=== PATIENT | male | born 1965 | race Caucasian/White ===

== ENCOUNTER → 2016-08-04 | Outpatient (REF) | payer BC ==
[2016-08-04 18:25] LABS: BASO % 0.5 % (0.0-1.0); EOS # 0.3 K/mm3 (0.0-0.50); EOS % 4.8 % (0.0-3.0); LARGE UNSTAINED CELL # 0.2 K/mm3 (0.0-0.4); LARGE UNSTAINED CELL % 3.4 % (0.0-4.0); LYMPH # 1.7 K/mm3 (1.5-4.5); LYMPH % 27.7 % (24.0-44.0); MEAN CORPUSCULAR HEMOGLOBIN 30.7 pg (27.0-33.0); MEAN CORPUSCULAR HGB CONC 34.6 g/dl (32.0-36.5); MEAN CORPUSCULAR VOLUME 88.8 fl (80.0-96.0); MONO # 0.3 K/mm3 (0.0-0.8); MONO % 5.5 % (0.0-5.0); NEUTROPHILS # 3.5 K/mm3 (1.8-7.7); PLATELET COUNT, AUTOMATED 271 k/mm3 (150-450); RED CELL DISTRIBUTION WIDTH 12.7 % (11.5-14.5); WHITE BLOOD COUNT 6.1 K/mm3 (4.0-10.0)
[2016-08-04 18:37] LABS: ALBUMIN 4.4 GM/DL (3.2-5.2); ALBUMIN/GLOBULIN RATIO 1.38 (1.00-1.93); ALKALINE PHOSPHATASE 96 U/L (45-117); ALT/SGPT 36 U/L (12-78); ANION GAP 11 MEQ/L (8-16); AST/SGOT 12 U/L (15-37); BILIRUBIN,TOTAL 0.5 MG/DL (0.2-1.0); BLOOD UREA NITROGEN 19 MG/DL (7-18); CARBON DIOXIDE LEVEL 24 MEQ/L (21-32); CHLORIDE LEVEL 102 MEQ/L (98-107); CHOLESTEROL LEVEL 189 MG/DL (<200); CREATININE FOR GFR 0.62 MG/DL (0.70-1.30); GLOMERULAR FILTRATION RATE > 60.0 (>56); GLUCOSE, FASTING 259 MG/DL (70-105); POTASSIUM SERUM 4.1 MEQ/L (3.5-5.1); SODIUM LEVEL 137 MEQ/L (136-145); TOTAL PROTEIN 7.6 GM/DL (6.4-8.2); TRIGLYCERIDES LEVEL 282 MG/DL (<150)
== END ==
LOC: M SFHCCAPE 07:04
PROVIDERS: ATTEND Physician Assistant
DX: E78.2 Mixed hyperlipidemia (principal); E11.9 Type 2 diabetes mellitus without complications; I10 Essential (primary) hypertension; Z12.5 Encounter for screening for malignant neoplasm of prostate
CPT/HCPCS: 80053; 80061; 82043; 83036; 84443; 85025; G0103

== ENCOUNTER → 2017-06-24 | Outpatient (REF) | payer BC ==
[2017-06-24 17:58] LABS: ALBUMIN 4.4 GM/DL (3.2-5.2); ALBUMIN/GLOBULIN RATIO 1.29 (1.00-1.93); ALKALINE PHOSPHATASE 95 U/L (45-117); ALT/SGPT 46 U/L (12-78); ANION GAP 10 MEQ/L (8-16); AST/SGOT 19 U/L (7-37); BILIRUBIN,TOTAL 0.4 MG/DL (0.2-1.0); BLOOD UREA NITROGEN 18 MG/DL (7-18); CALCIUM LEVEL 9.4 MG/DL (8.5-10.1); CARBON DIOXIDE LEVEL 28 MEQ/L (21-32); CHLORIDE LEVEL 101 MEQ/L (98-107); CHOLESTEROL LEVEL 168 MG/DL (<200); CREATININE FOR GFR 0.66 MG/DL (0.70-1.30); GLOMERULAR FILTRATION RATE > 60.0 (>56); GLUCOSE, FASTING 134 MG/DL (70-105); POTASSIUM SERUM 4.1 MEQ/L (3.5-5.1); SODIUM LEVEL 139 MEQ/L (136-145); TOTAL PROTEIN 7.8 GM/DL (6.4-8.2); TRIGLYCERIDES LEVEL 365 MG/DL (<150)
== END ==
LOC: M SFHCCAPE 10:22
PROVIDERS: ATTEND Physician Assistant
DX: E78.2 Mixed hyperlipidemia (principal); E11.9 Type 2 diabetes mellitus without complications

== ENCOUNTER → 2018-03-01 | Outpatient (REF) | payer BC ==
[2018-03-01 17:46] LABS: ALBUMIN 3.7 GM/DL (3.2-5.2); ALBUMIN/GLOBULIN RATIO 1.09 (1.00-1.93); ALKALINE PHOSPHATASE 86 U/L (45-117); ALT/SGPT 37 U/L (12-78); ANION GAP 10 MEQ/L (8-16); AST/SGOT 19 U/L (7-37); BILIRUBIN,TOTAL 0.3 MG/DL (0.2-1.0); BLOOD UREA NITROGEN 19 MG/DL (7-18); CALCIUM LEVEL 8.8 MG/DL (8.5-10.1); CARBON DIOXIDE LEVEL 26 MEQ/L (21-32); CHLORIDE LEVEL 107 MEQ/L (98-107); CHOLESTEROL LEVEL 172 MG/DL (<200); CHOLESTEROL RISK RATIO 6.142 (<5); CREATININE FOR GFR 0.78 MG/DL (0.70-1.30); GLOMERULAR FILTRATION RATE > 60.0 (>56); GLUCOSE, FASTING 165 MG/DL (70-100); HDL CHOLESTEROL 28 MG/DL (>40); NON-HDL-C 144 MG/DL; POTASSIUM SERUM 4.2 MEQ/L (3.5-5.1); PSA SCREENING 0.56 NG/ML (< 4.0); SODIUM LEVEL 143 MEQ/L (136-145); TOTAL PROTEIN 7.1 GM/DL (6.4-8.2); TRIGLYCERIDES LEVEL 567 MG/DL (<150)
[2018-03-01 17:52] LABS: ESTIMATED AVERAGE GLUCOSE 200 MG/DL (60-110); HEMOGLOBIN A1c 8.6 %
[2018-03-01 18:02] LABS: CREATININE, URINE 66.3 MG/DL; MALB URINE SIEMENS 28.5 MG/L; MAU/CREAT RATIO 42.9 MCG/MG (0.0-30.0)
== END ==
LOC: M SFHCCAPE 06:58
DX: Z12.5 Encounter for screening for malignant neoplasm of prostate (principal); E11.69 Type 2 diabetes mellitus with other specified complication; E78.2 Mixed hyperlipidemia
CPT/HCPCS: 84443

== ENCOUNTER → 2018-11-22 | Outpatient (REF) | payer BC ==
[2018-11-22 17:21] LABS: ALBUMIN 4.3 GM/DL (3.2-5.2); ALT/SGPT 42 U/L (12-78); BILIRUBIN,TOTAL 0.4 MG/DL (0.2-1.0); BLOOD UREA NITROGEN 21 MG/DL (7-18); CALCIUM LEVEL 9.1 MG/DL (8.5-10.1); CARBON DIOXIDE LEVEL 23 MEQ/L (21-32); CHLORIDE LEVEL 100 MEQ/L (98-107); CHOLESTEROL LEVEL 199 MG/DL (<200); CHOLESTEROL RISK RATIO 7.653 (<5); CREATININE FOR GFR 0.75 MG/DL (0.70-1.30); GLOMERULAR FILTRATION RATE > 60.0 (>56); GLUCOSE, FASTING 241 MG/DL (70-100); HDL CHOLESTEROL 26 MG/DL (>40); NON-HDL-C 173 MG/DL; POTASSIUM SERUM 4.1 MEQ/L (3.5-5.1); SODIUM LEVEL 132 MEQ/L (136-145); TOTAL PROTEIN 7.5 GM/DL (6.4-8.2); TRIGLYCERIDES LEVEL 800 MG/DL (<150)
[2018-11-22 19:03] LABS: HEMOGLOBIN A1c 8.9 %
== END ==
LOC: M SFHCCAPE 07:01
PROVIDERS: ATTEND Physician Assistant
DX: E11.69 Type 2 diabetes mellitus with other specified complication (principal); E78.2 Mixed hyperlipidemia

== ENCOUNTER → 2019-05-31 | Outpatient (REF) | payer BC ==
[2019-05-31 17:12] LABS: ALBUMIN 4.1 GM/DL (3.2-5.2); ALT/SGPT 43 U/L (12-78); BILIRUBIN,TOTAL 0.5 MG/DL (0.2-1.0); BLOOD UREA NITROGEN 17 MG/DL (7-18); CALCIUM LEVEL 9.1 MG/DL (8.5-10.1); CARBON DIOXIDE LEVEL 28 MEQ/L (21-32); CHLORIDE LEVEL 100 MEQ/L (98-107); CHOLESTEROL LEVEL 149 MG/DL (<200); CHOLESTEROL RISK RATIO 3.921 (<5); CREATININE FOR GFR 0.74 MG/DL (0.70-1.30); GLOMERULAR FILTRATION RATE > 60.0 (>56); GLUCOSE, FASTING 167 MG/DL (70-100); HDL CHOLESTEROL 38 MG/DL (>40); LDL CHOLESTEROL 74 MG/DL (<100); NON-HDL-C 111 MG/DL; POTASSIUM SERUM 4.8 MEQ/L (3.5-5.1); SODIUM LEVEL 137 MEQ/L (136-145); TOTAL PROTEIN 7.5 GM/DL (6.4-8.2); TRIGLYCERIDES LEVEL 187 MG/DL (<150)
[2019-05-31 17:14] LABS: CREATININE, URINE 33.4 MG/DL; MALB URINE SIEMENS 13.5 MG/L; MAU/CREAT RATIO 40.4 MCG/MG (0.0-30.0)
[2019-05-31 17:26] LABS: HEMOGLOBIN A1c 8.3 %
== END ==
LOC: M SFHCCAPE 07:06
PROVIDERS: ATTEND Physician Assistant
DX: Z12.5 Encounter for screening for malignant neoplasm of prostate (principal); I10 Essential (primary) hypertension; E11.9 Type 2 diabetes mellitus without complications; E78.2 Mixed hyperlipidemia

== ENCOUNTER → 2020-05-10 | Outpatient (REF) | payer BC ==
[2020-05-10 12:35] LABS: BASO # 0.1 10^3/uL (0.0-0.2); BASO % 0.7 % (0.0-1.0); EOS # 0.4 10^3/uL (0.0-0.5); EOS % 6.2 % (0.0-3.0); HEMOGLOBIN 15.5 g/dl (13.5-17.5); LYMPH # 1.9 10^3/uL (1.5-5.0); LYMPH % 28.7 % (24.0-44.0); MEAN CORPUSCULAR HEMOGLOBIN 29.4 pg (27.0-33.0); MEAN CORPUSCULAR HGB CONC 32.3 g/dl (32.0-36.5); MEAN CORPUSCULAR VOLUME 91.1 fl (80.0-96.0); MONO # 0.6 10^3/uL (0.0-0.8); MONO % 9.3 % (0.0-5.0); NEUTROPHILS # 3.7 10^3/uL (1.5-8.5); NEUTROPHILS % 54.4 % (36.0-66.0); PLATELET COUNT, AUTOMATED 249 10^3/uL (150-450); RED BLOOD COUNT 5.27 10^6/uL (4.30-6.10); WHITE BLOOD COUNT 6.8 10^3/uL (4.0-10.0)
[2020-05-10 13:27] LABS: ALT/SGPT 33 U/L (12-78); BILIRUBIN,TOTAL 0.6 MG/DL (0.2-1.0); BLOOD UREA NITROGEN 19 MG/DL (7-18); CALCIUM LEVEL 9.2 MG/DL (8.5-10.1); CARBON DIOXIDE LEVEL 27 MEQ/L (21-32); CHLORIDE LEVEL 101 MEQ/L (98-107); CHOLESTEROL LEVEL 187 MG/DL (<200); CHOLESTEROL RISK RATIO 5.843 (<5); GLOMERULAR FILTRATION RATE > 60.0 (>56); GLUCOSE, FASTING 226 MG/DL (70-100); HDL CHOLESTEROL 32 MG/DL (>40); NON-HDL-C 155 MG/DL; POTASSIUM SERUM 5.1 MEQ/L (3.5-5.1); SODIUM LEVEL 133 MEQ/L (136-145); TOTAL PROTEIN 7.4 GM/DL (6.4-8.2); TRIGLYCERIDES LEVEL 632 MG/DL (<150)
[2020-05-10 13:56] LABS: HEMOGLOBIN A1c 10.2 %
== END ==
LOC: M SFHCCLAY 07:17
PROVIDERS: ATTEND Physician Assistant
DX: E11.9 Type 2 diabetes mellitus without complications (principal); Z12.5 Encounter for screening for malignant neoplasm of prostate

== ENCOUNTER → 2020-10-22 | Outpatient (REF) | payer BC ==
[2020-10-22 17:33] LABS: ALBUMIN 4.2 GM/DL (3.2-5.2); ALT/SGPT 53 U/L (12-78); BILIRUBIN,TOTAL 0.3 MG/DL (0.2-1.0); BLOOD UREA NITROGEN 22 MG/DL (7-18); CALCIUM LEVEL 8.8 MG/DL (8.5-10.1); CARBON DIOXIDE LEVEL 26 MEQ/L (21-32); CHLORIDE LEVEL 103 MEQ/L (98-107); CHOLESTEROL LEVEL 147 MG/DL (<200); GLOMERULAR FILTRATION RATE > 60.0 (>56); GLUCOSE, FASTING 172 MG/DL (70-100); HDL CHOLESTEROL 30 MG/DL (>40); LDL CHOLESTEROL 46 MG/DL (<100); NON-HDL-C 117 MG/DL; POTASSIUM SERUM 4.5 MEQ/L (3.5-5.1); SODIUM LEVEL 134 MEQ/L (136-145); TOTAL PROTEIN 7.3 GM/DL (6.4-8.2); TRIGLYCERIDES LEVEL 354 MG/DL (<150)
[2020-10-22 18:01] LABS: HEMOGLOBIN A1c 9.1 %
== END ==
LOC: M SFHCCAPE 07:57
PROVIDERS: ATTEND Physician Assistant
DX: I10 Essential (primary) hypertension (principal); E11.9 Type 2 diabetes mellitus without complications; E78.2 Mixed hyperlipidemia

== ENCOUNTER → 2021-05-22 | Outpatient (REF) | payer BC ==
[2021-05-22 16:03] LABS: BASO # 0.1 10^3/uL (0.0-0.2); BASO % 0.7 % (0.0-1.0); EOS # 0.4 10^3/uL (0.0-0.5); EOS % 4.8 % (0.0-3.0); HEMATOCRIT 44.9 % (42.0-52.0); HEMOGLOBIN 14.6 g/dl (13.5-17.5); LYMPH # 1.9 10^3/uL (1.5-5.0); LYMPH % 26.8 % (24.0-44.0); MEAN CORPUSCULAR HGB CONC 32.5 g/dl (32.0-36.5); MEAN CORPUSCULAR VOLUME 89.3 fl (80.0-96.0); MONO # 0.6 10^3/uL (0.0-0.8); MONO % 8.7 % (2.0-8.0); NEUTROPHILS # 4.2 10^3/uL (1.5-8.5); PLATELET COUNT, AUTOMATED 264 10^3/uL (150-450); RED BLOOD COUNT 5.03 10^6/uL (4.30-6.10); WHITE BLOOD COUNT 7.2 10^3/uL (4.0-10.0)
[2021-05-22 16:39] LABS: ALBUMIN 3.9 GM/DL (3.2-5.2); ALT/SGPT 42 U/L (12-78); BILIRUBIN,TOTAL 0.5 MG/DL (0.2-1.0); BLOOD UREA NITROGEN 21 MG/DL (7-18); CALCIUM LEVEL 9.4 MG/DL (8.5-10.1); CARBON DIOXIDE LEVEL 24 MEQ/L (21-32); CHLORIDE LEVEL 99 MEQ/L (98-107); CHOLESTEROL LEVEL 157 MG/DL (<200); CHOLESTEROL RISK RATIO 4.617 (<5); CREATININE FOR GFR 0.79 MG/DL (0.70-1.30); GLOMERULAR FILTRATION RATE > 60.0 (>56); GLUCOSE, FASTING 279 MG/DL (70-100); HDL CHOLESTEROL 34 MG/DL (>40); NON-HDL-C 123 MG/DL; POTASSIUM SERUM 4.7 MEQ/L (3.5-5.1); SODIUM LEVEL 134 MEQ/L (136-145); TOTAL PROTEIN 7.3 GM/DL (6.4-8.2); TRIGLYCERIDES LEVEL 403 MG/DL (<150)
[2021-05-22 16:48] LABS: HEMOGLOBIN A1c 11.3 %
== END ==
LOC: M SFHCCAPE 07:38
PROVIDERS: ATTEND Physician Assistant
DX: E78.2 Mixed hyperlipidemia (principal); E11.9 Type 2 diabetes mellitus without complications

== ENCOUNTER → 2021-06-04 | Outpatient (CLI) | payer BC | LOC: M LABSMTC 10:17 | PROVIDERS: ATTEND Pediatrics | DX: Z11.52 Encounter for screening for COVID-19 (principal); Z20.822 Contact with and (suspected) exposure to COVID-19 | CPT/HCPCS: C9803; U0003 ==

== ENCOUNTER → 2022-01-05 | Outpatient (REF) | payer BC ==
[2022-01-05 15:48] LABS: BASO # 0.1 10^3/uL (0.0-0.2); BASO % 0.7 % (0.0-1.0); EOS # 0.5 10^3/uL (0.0-0.5); EOS % 6.5 % (0.0-3.0); HEMATOCRIT 49.7 % (42.0-52.0); HEMOGLOBIN 16.2 g/dl (13.5-17.5); LYMPH # 2.1 10^3/uL (1.5-5.0); LYMPH % 27.5 % (24.0-44.0); MEAN CORPUSCULAR HGB CONC 32.6 g/dl (32.0-36.5); MEAN CORPUSCULAR VOLUME 88.9 fl (80.0-96.0); MONO # 0.6 10^3/uL (0.0-0.8); MONO % 8.1 % (2.0-8.0); NEUTROPHILS # 4.3 10^3/uL (1.5-8.5); NEUTROPHILS % 56.5 % (36.0-66.0); PLATELET COUNT, AUTOMATED 261 10^3/uL (150-450); RED BLOOD COUNT 5.59 10^6/uL (4.30-6.10); WHITE BLOOD COUNT 7.7 10^3/uL (4.0-10.0)
[2022-01-05 16:12] LABS: HEMOGLOBIN A1c 10.9 %
[2022-01-05 16:19] LABS: ALT/SGPT 39 U/L (12-78); BILIRUBIN,TOTAL 0.5 MG/DL (0.2-1.0); BLOOD UREA NITROGEN 17 MG/DL (7-18); CALCIUM LEVEL 9.3 MG/DL (8.5-10.1); CARBON DIOXIDE LEVEL 24 MEQ/L (21-32); CHLORIDE LEVEL 103 MEQ/L (98-107); CHOLESTEROL LEVEL 150 MG/DL (<200); CREATININE FOR GFR 0.73 MG/DL (0.70-1.30); GLOMERULAR FILTRATION RATE > 60.0 (>56); GLUCOSE, FASTING 215 MG/DL (70-100); HDL CHOLESTEROL 26 MG/DL (>40); POTASSIUM SERUM 4.6 MEQ/L (3.5-5.1); SODIUM LEVEL 137 MEQ/L (136-145); TRIGLYCERIDES LEVEL 693 MG/DL (<150)
[2022-01-05 16:20] LABS: ALBUMIN 4.2 GM/DL (3.2-5.2); CHOLESTEROL RISK RATIO 5.769 (<5); NON-HDL-C 124 MG/DL; TOTAL 25(OH) VITAMIN D 21.5 NG/ML (30.0-100.0); TOTAL PROTEIN 7.5 GM/DL (6.4-8.2)
[2022-01-05 16:21] LABS: MALB URINE SIEMENS 9.9 MG/L; MAU/CREAT RATIO 31.9 MCG/MG (0.0-30.0)
== END ==
LOC: M SFHCCAPE 07:14
PROVIDERS: ATTEND Physician Assistant
DX: Z00.00 Encounter for general adult medical examination without abnormal findings (principal)
CPT/HCPCS: 80053; 80061; 82043; 82306; 83036; 84443; 85025; G0103

== ENCOUNTER → 2022-04-05 | Outpatient (CLI) | payer BC ==
[~2022-04-05] MED LIST: ALBU8.5H INH; AMLO1TAB24 PO; ATOR1TAB21 PO; EZET10TA21 PO; INVO100T PO; LEVE1INJ5 SC; LISI20TA35 PO; METF750T36 PO; TRUL0.5I PO
== END ==
LOC: M LABSMTC 11:33
PROVIDERS: ATTEND Anesthesiology
DX: Z01.812 Encounter for preprocedural laboratory examination (principal); Z11.52 Encounter for screening for COVID-19

== ENCOUNTER 2022-04-09 06:32 | Day surgery (SDC) | payer BC ==
[~2022-04-09] VITALS: Ht 182.9 cm; Wt 131.5 kg
[~2022-04-09 06:32] MED LIST changes: +NS 1,000 ML IV ONE
[2022-04-09] MEDS ORDERED: LIDOCAINE 2% 100MG/5ML SDV (FOR ANES.) As Ordered ONE (07:03)
[2022-04-09] MEDS ORDERED: propofoL 200 MG/20 ML VIAL As Ordered ONE ×2 (07:03→07:41)
[2022-04-09 08:20] VITALS: BP 119/78
== END 2022-04-09 08:27 | disposition home or self-care (01) ==
LOC: M OPP 06:32
PROVIDERS: ATTEND Surgery
DX: Z12.11 Encounter for screening for malignant neoplasm of colon (principal); Z80.0 Family history of malignant neoplasm of digestive organs; D12.2 Benign neoplasm of ascending colon; D12.4 Benign neoplasm of descending colon; D12.7 Benign neoplasm of rectosigmoid junction; D12.8 Benign neoplasm of rectum; K57.30 Diverticulosis of large intestine without perforation or abscess without bleeding; Z79.02 Long term (current) use of antithrombotics/antiplatelets; Z79.4 Long term (current) use of insulin; Z79.52 Long term (current) use of systemic steroids; Z79.899 Other long term (current) drug therapy; I10 Essential (primary) hypertension; E11.9 Type 2 diabetes mellitus without complications; E78.00 Pure hypercholesterolemia, unspecified; R06.9 Unspecified abnormalities of breathing; Z87.891 Personal history of nicotine dependence

== ENCOUNTER → 2022-04-17 | Outpatient (CLI) | payer BC ==
[~2022-04-17] MED LIST changes: -NS 1,000 ML IV ONE
== END ==
LOC: M RAD 07:59
PROVIDERS: ATTEND Physician Assistant
DX: Z12.2 Encounter for screening for malignant neoplasm of respiratory organs (principal)

== ENCOUNTER → 2022-06-04 | Outpatient (CLI) | payer BC | LOC: M CARPUL 14:11 | PROVIDERS: ATTEND Internal Medicine Pulmonary Disease | DX: R06.02 Shortness of breath (principal) ==

== ENCOUNTER → 2022-06-15 | Outpatient (REF) | payer BC ==
[2022-06-15 19:23] LABS: HEMOGLOBIN A1c 8.5 % (4.0-6.0)
== END ==
LOC: M SFHCCAPE 11:20
PROVIDERS: ATTEND Physician Assistant
DX: Z01.818 Encounter for other preprocedural examination (principal); H26.9 Unspecified cataract; E11.9 Type 2 diabetes mellitus without complications

== ENCOUNTER → 2022-06-18 | Outpatient (CLI) | payer BC ==
[~2022-06-18] MED LIST changes: +BREO1INH3 INH
== END ==
LOC: M LABSMTC 10:15
PROVIDERS: ATTEND Anesthesiology
DX: Z01.812 Encounter for preprocedural laboratory examination (principal); Z11.52 Encounter for screening for COVID-19

== ENCOUNTER 2022-06-23 09:07 | Day surgery (SDC) | payer BC ==
[~2022-06-23] VITALS: Ht 182.9 cm; Wt 131.5 kg
[~2022-06-23 09:07] MED LIST changes: +CEFUROXIME 1MG/0.1ML INTRACAMERAL INJ As Ordered ONE; +LIDOCAINE 1% 1ML PF SYRINGE (OR EYE CASES) As Ordered ONE; +PROPARACAINE 0.5% OPHTH SOL 15ML OD ONE
[2022-06-23] MEDS: CYCLOPENTOLATE 1% OPHTH SOLN 2 ML BTL OD SCH ×2 (09:58→10:01)
[2022-06-23] MEDS: TROPICAMIDE 1% OPHTH SOLN 15ML OD SCH ×2 (09:58→10:01)
[2022-06-23] MEDS: PHENYLEPHRINE 2.5% OPHTH SOL 2ML OD SCH ×2 (09:58→10:01)
[2022-06-23] MEDS: OFLOXACIN 0.3 % (OCUFLOX) OPTH SOL 5ML OD SCH ×2 (09:58→10:01)
[2022-06-23] MEDS ORDERED: fentaNYL 100 MCG/2 ML INJECTION As Ordered ONE (10:37)
[2022-06-23] MEDS ORDERED: MIDAZOLAM INJ 2MG/2ML VIAL (J2250 PER 1MG) As Ordered ONE (10:37)
[2022-06-23] MEDS ORDERED: TOBRADEX OPHTH OINT 3.5 GM As Ordered ONE (10:55)
[2022-06-23 11:25] VITALS: BP 144/86
== END 2022-06-23 11:20 | disposition home or self-care (01) ==
LOC: M SDC 09:07
PROVIDERS: ATTEND Ophthalmology
DX: H25.11 Age-related nuclear cataract, right eye (principal); E11.9 Type 2 diabetes mellitus without complications; I10 Essential (primary) hypertension; E78.5 Hyperlipidemia, unspecified; J45.909 Unspecified asthma, uncomplicated; Z87.891 Personal history of nicotine dependence; Z79.51 Long term (current) use of inhaled steroids; Z79.899 Other long term (current) drug therapy; Z79.4 Long term (current) use of insulin
CPT/HCPCS: 66984; J0697; J2250; J3010

== ENCOUNTER → 2023-08-23 | Outpatient (REF) | payer BC ==
[~2023-08-23] MED LIST changes: -CEFUROXIME 1MG/0.1ML INTRACAMERAL INJ As Ordered ONE; +INSU100I6 SC; -LEVE1INJ5 SC; -LIDOCAINE 1% 1ML PF SYRINGE (OR EYE CASES) As Ordered ONE; -PROPARACAINE 0.5% OPHTH SOL 15ML OD ONE
[2023-08-23 18:53] LABS: ALBUMIN 3.9 G/DL (3.2-5.2); ALKALINE PHOSPHATASE 91 U/L (46-116); ALT/SGPT 26 U/L (7.0-40); AST/SGOT 10 U/L (<34); BILIRUBIN,TOTAL 0.6 MG/DL (0.3-1.2); BLOOD UREA NITROGEN 17 MG/DL (9-23); CARBON DIOXIDE LEVEL 23 MMOL/L (20-31); CHLORIDE LEVEL 101 MMOL/L (98-107); CHOLESTEROL LEVEL 101 MG/DL (<200); CHOLESTEROL RISK RATIO 3.21 (<5); CREATININE FOR GFR 0.53 MG/DL (0.70-1.30); GLOMERULAR FILTRATION RATE > 60.0 (>49); GLUCOSE, FASTING 191 MG/DL (74-106); HDL CHOLESTEROL 31.4 MG/DL (>40); LDL CHOLESTEROL 18.6 MG/DL (<100); NON-HDL-C 69.6 MG/DL; POTASSIUM SERUM 4.5 MMOL/L (3.5-5.1); SODIUM LEVEL 134 MMOL/L (136-145); TOTAL PROTEIN 7.4 G/DL (5.7-8.2); TRIGLYCERIDES LEVEL 255 MG/DL (<150)
[2023-08-23 19:18] LABS: HEMOGLOBIN A1c 9.8 % (4.0-6.0)
== END ==
LOC: M SFHCCAPE 07:22
PROVIDERS: ATTEND Physician Assistant Medical
DX: E78.2 Mixed hyperlipidemia (principal); E11.69 Type 2 diabetes mellitus with other specified complication

== ENCOUNTER → 2024-05-16 | Outpatient (REF) | payer BC ==
[2024-05-16 17:22] LABS: ALKALINE PHOSPHATASE 101 U/L (40-129); ALT/SGPT 31 U/L (7.0-40); AST/SGOT 13 U/L (<34); BILIRUBIN,TOTAL 0.6 MG/DL (0.3-1.2); BLOOD UREA NITROGEN 23 MG/DL (9-23); CALCIUM LEVEL 9.4 MG/DL (8.3-10.6); CARBON DIOXIDE LEVEL 26 MMOL/L (20-31); CHLORIDE LEVEL 102 MMOL/L (98-107); CREATININE FOR GFR 0.51 MG/DL (0.70-1.30); GLOMERULAR FILTRATION RATE > 60.0 (>49); GLUCOSE, FASTING 322 MG/DL (74-106); POTASSIUM SERUM 4.4 MMOL/L (3.5-5.1); SODIUM LEVEL 135 MMOL/L (136-145); TOTAL PROTEIN 7.7 G/DL (5.7-8.2)
[2024-05-16 17:51] LABS: CREATININE, URINE 41.9 MG/DL; MAU/CREAT RATIO 57.2 MCG/MG (0.0-30.0)
[2024-05-16 18:02] LABS: HEMOGLOBIN A1c 11.8 % (4.0-6.0)
== END ==
LOC: M SFHCCAPE 07:16
PROVIDERS: ATTEND Physician Assistant Medical
DX: E11.65 Type 2 diabetes mellitus with hyperglycemia (principal)

== ENCOUNTER 2024-08-12 08:06 | Inpatient (IN) | payer BC ==
[~2024-08-12] VITALS: Ht 182.9 cm; Wt 133.0 kg
[2024-08-12] VITALS (20 sets, daily range): BP systolic 102–134; BP diastolic 56–76; TEMP 97.2–97.8; O2SAT 92–99
[2024-08-12 08:47] LABS: VENOUS BASE EXCESS -3.5 (-2.0-2.0); VENOUS HCO3 20.8 MMOL/L (23.0-27.0); VENOUS PARTIAL PRESSURE CO2 35.4 mmHg (38.0-50.0); VENOUS PH 7.387 UNITS (7.330-7.430); VENOUS TOTAL CO2 21.9 MMOL/L (24.0-28.0)
[2024-08-12] MEDS ORDERED: ISOVUE-370 76% 100ML VIAL As Ordered ONE (08:58)
[2024-08-12 09:04] LABS: HEMATOCRIT 44.2 % (42.0-52.0); HEMOGLOBIN 14.6 g/dl (13.5-17.5); MEAN CORPUSCULAR HEMOGLOBIN 28.8 pg (27.0-33.0); MEAN CORPUSCULAR VOLUME 87.2 fl (80.0-96.0); PLATELET COUNT, AUTOMATED 234 10^3/uL (150-450); RED BLOOD COUNT 5.07 10^6/uL (4.30-6.10); WHITE BLOOD COUNT 22.4 10^3/uL (4.0-10.0)
[2024-08-12 09:09] LABS: INR 1.06; PARTIAL THROMBOPLASTIN TIME 28.6 SECONDS (24.8-34.2); PROTHROMBIN TIME 14.1 SECONDS (12.5-14.5)
[2024-08-12 09:24] LABS: AMYLASE 40 U/L (30-118)
[2024-08-12 09:25] LABS: ALBUMIN 3.8 G/DL (3.2-5.2); ALKALINE PHOSPHATASE 71 U/L (40-129); ALT/SGPT 24 U/L (7.0-40); AST/SGOT < 8 U/L (<34); BILIRUBIN,DIRECT 0.4 MG/DL (<0.4); BLOOD UREA NITROGEN 18 MG/DL (9-23); C REACTIVE PROTEIN QUANTITATIV 16.02 MG/DL (<1.0); CALCIUM LEVEL 9.1 MG/DL (8.3-10.6); CARBON DIOXIDE LEVEL 23 MMOL/L (20-31); CHLORIDE LEVEL 105 MMOL/L (98-107); CREATININE FOR GFR 0.66 MG/DL (0.70-1.30); GLOMERULAR FILTRATION RATE > 60.0 (>49); GLUCOSE, FASTING 302 MG/DL (74-106); POTASSIUM SERUM 4.3 MMOL/L (3.5-5.1); SODIUM LEVEL 138 MMOL/L (136-145); TOTAL PROTEIN 7.3 G/DL (5.7-8.2)
[2024-08-12] MEDS: PIPERACILLIN/TAZOBACTAM SOD 4.5 GM in DEXTROSE 5% (D5W) ADV/MINI-BAG 50 ML IV ONE (09:30)
[2024-08-12] MEDS: [UNRECOGNIZED DRUG - OTHER] IV STA (09:30)
[2024-08-12] MEDS: NS 0.9% IV STA (09:30)
[2024-08-12 09:32] LABS: PROCALCITONIN 0.57 ng/ml
[2024-08-12 09:42] LABS: ATYPICAL LYMPH 1 % (0-5); LYMPHOCYTES 4 % (16-44); MONOCYTES 6 % (0-5); NEUTROPHILS 87 % (28-66)
[2024-08-12 09:43] LABS: PLATELET ESTIMATE NORMAL (NORMAL)
[2024-08-12] MEDS: dexAMETHasone 20MG/5ML VIAL IV ONE (09:48)
[2024-08-12] MEDS ORDERED: oxyCODONE 5MG TAB PO PRN (10:05)
[2024-08-12] MEDS ORDERED: fentaNYL 100 MCG/2 ML INJECTION IV PRN (10:05)
[2024-08-12] MEDS ORDERED: MEPERIDINE 25 MG/ML 1ML VIAL IV PRN (10:05)
[2024-08-12] MEDS ORDERED: ONDANSETRON 4MG 2ML VIAL IV PRN (10:05)
[2024-08-12] MEDS: ACETAMINOPHEN *IV* 1,000 MG in IV 1 EA IV ONE (10:07)
[2024-08-12] MEDS ORDERED: BASA100I SC (10:19)
[2024-08-12] MEDS ORDERED: TIRZ5PEN SQ (10:19)
[2024-08-12] MEDS ORDERED: ATOR40TA75 PO (10:19)
[2024-08-12] MEDS ORDERED: HOME MED LIST COMPLETE! XX SCH (10:20)
[2024-08-12] MEDS ORDERED: ROCURONIUM BROMIDE 50MG/5ML VIAL As Ordered ONE (10:33)
[2024-08-12] MEDS ORDERED: MIDAZOLAM INJ 2MG/2ML VIAL As Ordered ONE (10:33)
[2024-08-12] MEDS ORDERED: propofoL 200 MG/20 ML VIAL As Ordered ONE (10:33)
[2024-08-12] MEDS ORDERED: ONDANSETRON 4MG 2ML VIAL As Ordered ONE (10:33)
[2024-08-12] MEDS ORDERED: LIDOCAINE 2% 100MG/5ML SDV (FOR ANES.) As Ordered ONE (10:33)
[2024-08-12] MEDS ORDERED: fentaNYL 100 MCG/2 ML INJECTION As Ordered ONE (10:34)
[2024-08-12] MEDS ORDERED: SUCCINYLCHOLINE 100MG/5ML SYRINGE As Ordered ONE (10:37)
[2024-08-12] MEDS ORDERED: GLYCOPYRROLATE INJ 0.2 MG/ML 2 ML VIAL As Ordered ONE (10:42)
[2024-08-12] MEDS ORDERED: SUGAMMADEX SODIUM 500 MG/5 ML VIAL (BRIDION) As Ordered ONE (12:08)
[2024-08-12] MEDS: LIDOCAINE W/EPINEPHRINE 1% 20ML VIAL As Ordered ONE (12:25)
[2024-08-12] MEDS ORDERED: FENTANYL DRIP LOCK BOX KEY 1 EACH XX PRN (12:55)
[2024-08-12] MEDS: LR 1,000 ML IV SCH (13:00)
[2024-08-12] MEDS: propofoL 1,000 MG in IV 1 EA IV SCH (13:06)
[2024-08-12] MEDS: fentaNYL CITRATE/NaCl 1,000 MCG in IV 1 EA IV SCH (13:35)
[2024-08-12] MEDS: MIDAZOLAM INJ 2MG/2ML VIAL IV PRN (13:49)
[2024-08-12 15:08] LABS: ABG BASE EXCESS -3.7 (-2.0-2.0); ABG HCO3 21.2 MMOL/L (22.0-26.0); ABG O2 SATURATION 96.8 % (95.0-99.0); ABG PARTIAL PRESSURE CO2 37.7 mmHg (35.0-45.0); ABG PARTIAL PRESSURE O2 103.6 mmHg (75.0-100.0); ABG STANDARD HCO3 21.4 MMOL/L. (22.0-26.0); ABG TOTAL CO2 22.3 MMOL/L (23.0-31.0); ABG pH (ARTERIAL) 7.367 UNITS (7.350-7.450)
[2024-08-12] MEDS: PIPERACILLIN/TAZOBACTAM SOD 4.5 GM in DEXTROSE 5% (D5W) ADV/MINI-BAG 50 ML IV SCH (15:58)
[2024-08-12] MEDS: ENOXAPARIN 40MG/0.4ML SYRINGE (J1650 PER 10MG) SC SCH (21:37)
[2024-08-12] MEDS: PANTOPRAZOLE 40MG VIAL IV SCH (21:37)
[2024-08-13] VITALS (31 sets, daily range): BP systolic 108–160; BP diastolic 60–97; TEMP 97.4–98.2; O2SAT 91–99
[2024-08-13 04:35] LABS: BASO % 0.1 % (0.0-1.0); EOS % 0.1 % (0.0-3.0); HEMATOCRIT 40.4 % (42.0-52.0); HEMOGLOBIN 12.7 g/dl (13.5-17.5); LYMPH # 0.6 10^3/uL (1.5-5.0); LYMPH % 4.1 % (24.0-44.0); MEAN CORPUSCULAR HEMOGLOBIN 29.1 pg (27.0-33.0); MEAN CORPUSCULAR HGB CONC 31.4 g/dl (32.0-36.5); MEAN CORPUSCULAR VOLUME 92.4 fl (80.0-96.0); MONO # 0.9 10^3/uL (0.0-0.8); MONO % 6.5 % (2.0-8.0); NEUTROPHILS # 12.1 10^3/uL (1.5-8.5); NEUTROPHILS % 88.7 % (36.0-66.0); PLATELET COUNT, AUTOMATED 195 10^3/uL (150-450); RED BLOOD COUNT 4.37 10^6/uL (4.30-6.10); WHITE BLOOD COUNT 13.6 10^3/uL (4.0-10.0)
[2024-08-13 05:09] LABS: ALBUMIN 2.8 G/DL (3.2-5.2); ALKALINE PHOSPHATASE 55 U/L (40-129); ALT/SGPT 16 U/L (7.0-40); AST/SGOT < 8 U/L (<34); BILIRUBIN,TOTAL 0.4 MG/DL (0.3-1.2); BLOOD UREA NITROGEN 30 MG/DL (9-23); CARBON DIOXIDE LEVEL 23 MMOL/L (20-31); CHLORIDE LEVEL 104 MMOL/L (98-107); CREATININE FOR GFR 0.77 MG/DL (0.70-1.30); GLOMERULAR FILTRATION RATE > 60.0 (>49); GLUCOSE, FASTING 372 MG/DL (74-106); MAGNESIUM LEVEL 2.2 MG/DL (1.8-2.4); PHOSPHORUS LEVEL 3.4 MG/DL (2.4-5.1); POTASSIUM SERUM 4.7 MMOL/L (3.5-5.1); SODIUM LEVEL 139 MMOL/L (136-145); TOTAL PROTEIN 6.3 G/DL (5.7-8.2)
[2024-08-13 05:42] LABS: ABG HCO3 23.4 MMOL/L (22.0-26.0); ABG O2 SATURATION 98.2 % (95.0-99.0); ABG PARTIAL PRESSURE CO2 37.8 mmHg (35.0-45.0); ABG PARTIAL PRESSURE O2 200.2 mmHg (75.0-100.0); ABG STANDARD HCO3 23.7 MMOL/L. (22.0-26.0); ABG TOTAL CO2 24.5 MMOL/L (23.0-31.0); ABG pH (ARTERIAL) 7.409 UNITS (7.350-7.450)
[2024-08-13] MEDS ORDERED: INSULIN IV RATE CHANGE DOCUMENTATION ML/HR XX SCH (05:50)
[2024-08-13] MEDS ORDERED: INSULIN REGULAR IN 0.9 % NACL 100 UNIT in IV 1 EA IV SCH (05:50)
[2024-08-13] MEDS ORDERED: GLUCOSE 4 GM CHEW PO PRN (05:55)
[2024-08-13] MEDS ORDERED: GLUCAGON INJ 1MG VIAL SC PRN (05:55)
[2024-08-13] MEDS: INSULIN LISPRO (NovoLOG) PER UNIT SC SCH (06:13)
[2024-08-14] VITALS (23 sets, daily range): BP systolic 127–178; BP diastolic 70–92; TEMP 97–100; O2SAT 94–99
[2024-08-14 05:21] LABS: HEMATOCRIT 37.7 % (42.0-52.0); HEMOGLOBIN 11.9 g/dl (13.5-17.5); MEAN CORPUSCULAR HEMOGLOBIN 29.7 pg (27.0-33.0); MEAN CORPUSCULAR HGB CONC 31.6 g/dl (32.0-36.5); PLATELET COUNT, AUTOMATED 224 10^3/uL (150-450); RED BLOOD COUNT 4.01 10^6/uL (4.30-6.10); WHITE BLOOD COUNT 9.6 10^3/uL (4.0-10.0)
[2024-08-14 05:21] LABS: ABG BASE EXCESS -1.8 (-2.0-2.0); ABG HCO3 23.6 MMOL/L (22.0-26.0); ABG O2 SATURATION 97.8 % (95.0-99.0); ABG PARTIAL PRESSURE CO2 42.3 mmHg (35.0-45.0); ABG PARTIAL PRESSURE O2 173.4 mmHg (75.0-100.0); ABG TOTAL CO2 24.9 MMOL/L (23.0-31.0); ABG pH (ARTERIAL) 7.364 UNITS (7.350-7.450)
[2024-08-14 05:54] LABS: BLOOD UREA NITROGEN 29 MG/DL (9-23); CALCIUM LEVEL 8.2 MG/DL (8.3-10.6); CARBON DIOXIDE LEVEL 27 MMOL/L (20-31); CHLORIDE LEVEL 111 MMOL/L (98-107); CREATININE FOR GFR 0.53 MG/DL (0.70-1.30); GLOMERULAR FILTRATION RATE > 60.0 (>49); GLUCOSE, FASTING 297 MG/DL (74-106); MAGNESIUM LEVEL 2.7 MG/DL (1.8-2.4); POTASSIUM SERUM 4.9 MMOL/L (3.5-5.1); SODIUM LEVEL 144 MMOL/L (136-145)
[2024-08-14] MEDS: OXYMETAZOLINE 0.05% NASAL SPRAY ONE (09:00)
[2024-08-14] MEDS: ACETAMINOPHEN *IV* 1,000 MG in IV 1 EA IV ONE (13:37)
[2024-08-15 04:00] VITALS: BP 165/85; TEMP 98; O2SAT 96
[2024-08-15 05:56] LABS: HEMATOCRIT 38.7 % (42.0-52.0); HEMOGLOBIN 12.6 g/dl (13.5-17.5); MEAN CORPUSCULAR HEMOGLOBIN 29.2 pg (27.0-33.0); MEAN CORPUSCULAR HGB CONC 32.6 g/dl (32.0-36.5); MEAN CORPUSCULAR VOLUME 89.8 fl (80.0-96.0); PLATELET COUNT, AUTOMATED 253 10^3/uL (150-450); RED BLOOD COUNT 4.31 10^6/uL (4.30-6.10); WHITE BLOOD COUNT 9.6 10^3/uL (4.0-10.0)
[2024-08-15 08:00] VITALS: BP 176/80; TEMP 98.7; O2SAT 94
[2024-08-15] MEDS ORDERED: KETOROLAC 30 MG/ML 1ML VIAL IV PRN (09:30)
[2024-08-15] MEDS: INSULIN LISPRO (NovoLOG) PER UNIT SC SCH ×2 (11:57→21:33)
[2024-08-15 12:00] VITALS: BP 187/84; TEMP 98; O2SAT 87
[2024-08-15 16:00] VITALS: BP 175/101; TEMP 97.9; O2SAT 93
[2024-08-15] MEDS: AMPICILLIN SOD/SULBACTAM SOD 3 GM in SODIUM CHLORIDE 0.9% 100ML ADD 100 ML IV SCH (17:10)
[2024-08-15] MEDS ORDERED: ALBUTEROL 90 MCG/ACT 8GM HFA INHALER INH PRN (17:35)
[2024-08-15] MEDS: amLODIPine 5 MG TAB PO SCH (18:28)
[2024-08-15] MEDS: INSULIN LISPRO (NovoLOG) PER UNIT SC STA (18:30)
[2024-08-15 19:48] VITALS: BP 165/76; TEMP 98; O2SAT 93
[2024-08-15] MEDS: LEVEMIR (INSULIN DETEMIR) 1 UNITS/0.01ML SC SCH (21:33)
[2024-08-16 00:06] VITALS: BP 171/81; TEMP 97.3; O2SAT 94
[2024-08-16 04:42] VITALS: BP 174/83; TEMP 97.8; O2SAT 94
[2024-08-16 08:00] VITALS: BP 168/89; TEMP 98.6; O2SAT 93
[2024-08-16] MEDS: ATORVASTATIN 20 MG TAB PO SCH (08:03)
[2024-08-16] MEDS: predniSONE 20 MG TAB PO SCH (08:03)
[2024-08-16 08:04] VITALS: BP 168/89
[2024-08-16] MEDS: hydroCHLOROthiazide 12.5 MG CAPSULE PO SCH (08:25)
[2024-08-16] MEDS ORDERED: predniSONE 10MG TAB PO SCH (09:00)
[2024-08-16 09:31] LABS: BLOOD UREA NITROGEN 25 MG/DL (9-23); CALCIUM LEVEL 8.5 MG/DL (8.3-10.6); CARBON DIOXIDE LEVEL 31 MMOL/L (20-31); CHLORIDE LEVEL 107 MMOL/L (98-107); CREATININE FOR GFR 0.54 MG/DL (0.70-1.30); GLOMERULAR FILTRATION RATE > 60.0 (>49); GLUCOSE, FASTING 194 MG/DL (74-106); POTASSIUM SERUM 4.2 MMOL/L (3.5-5.1); SODIUM LEVEL 146 MMOL/L (136-145)
[2024-08-16 11:42] VITALS: BP 151/83; TEMP 98.1; O2SAT 92
[2024-08-16] MEDS ORDERED: PRED20TA PO (14:33)
[2024-08-16] MEDS ORDERED: AMOXTAB PO (14:35)
[2024-08-16] MEDS ORDERED: PROBCAP14 PO (14:35)
[2024-08-16] MEDS ORDERED: DOXY-440 PO (14:40)
== END 2024-08-16 15:32 | disposition home or self-care (01) | DRG 710 ==
LOC: M ED 08:06 → M SDC 10:04 → M ICU 12:47 → M SDC 13:32 → M ICU 13:33 → M MSPAV 08-16 11:27
PROVIDERS: ADMIT Internal Medicine Pulmonary Disease; ATTEND Student in an Organized Health Care Education/Training Program
PROC: 0KD20ZZ Extraction of Right Neck Muscle, Open Approach (ICD-10-PCS; 2024-08-12)
PROC: 0C9P0ZZ Drainage of Tonsils, Open Approach (ICD-10-PCS; 2024-08-12)
PROC: 0K9200Z Drainage of Right Neck Muscle with Drainage Device, Open Approach (ICD-10-PCS; 2024-08-12)
PROC: 5A1945Z Respiratory Ventilation, 24-96 Consecutive Hours (ICD-10-PCS; 2024-08-12)
PROC: 0KD Muscles, Extraction (ICD-10-PCS; principal; 2024-08-12 09:47)
DX: A41.9 Sepsis, unspecified organism (principal); J36 Peritonsillar abscess; L02.11 Cutaneous abscess of neck; E78.5 Hyperlipidemia, unspecified; E11.9 Type 2 diabetes mellitus without complications

== ENCOUNTER → 2024-10-23 | Outpatient (REF) | payer BC ==
[~2024-10-23] MED LIST changes: +AMOXTAB PO; +ATOR40TA75 PO; +BASA100I SC; +DOXY-440 PO; +PRED20TA PO; +PROBCAP14 PO; +TIRZ5PEN SQ
[2024-10-23 18:07] LABS: ALKALINE PHOSPHATASE 106 U/L (40-129); ALT/SGPT 24 U/L (7.0-40); AST/SGOT 12 U/L (<34); BASO # 0.1 10^3/uL (0.0-0.2); BASO % 0.8 % (0.0-1.0); BILIRUBIN,TOTAL 0.6 MG/DL (0.3-1.2); BLOOD UREA NITROGEN 21 MG/DL (9-23); CALCIUM LEVEL 9.3 MG/DL (8.3-10.6); CARBON DIOXIDE LEVEL 22 MMOL/L (20-31); CHLORIDE LEVEL 102 MMOL/L (98-107); CHOLESTEROL LEVEL 106 MG/DL (<200); CHOLESTEROL RISK RATIO 3.33 (<5); CREATININE FOR GFR 0.57 MG/DL (0.70-1.30); EOS # 0.5 10^3/uL (0.0-0.5); GLOMERULAR FILTRATION RATE > 60.0 (>49); GLUCOSE, FASTING 333 MG/DL (74-106); HDL CHOLESTEROL 31.8 MG/DL (>40); HEMATOCRIT 46.5 % (42.0-52.0); HEMOGLOBIN 15.4 g/dl (13.5-17.5); LDL CHOLESTEROL 31.4 MG/DL (<100); LYMPH % 24.8 % (24.0-44.0); MEAN CORPUSCULAR HEMOGLOBIN 28.7 pg (27.0-33.0); MEAN CORPUSCULAR HGB CONC 33.1 g/dl (32.0-36.5); MEAN CORPUSCULAR VOLUME 86.8 fl (80.0-96.0); MONO # 0.7 10^3/uL (0.0-0.8); MONO % 8.8 % (2.0-8.0); NEUTROPHILS # 4.6 10^3/uL (1.5-8.5); NEUTROPHILS % 59.1 % (36.0-66.0); NON-HDL-C 74.2 MG/DL; PLATELET COUNT, AUTOMATED 294 10^3/uL (150-450); POTASSIUM SERUM 4.5 MMOL/L (3.5-5.1); PSA SCREENING 0.49 NG/ML (< 4.00); RED BLOOD COUNT 5.36 10^6/uL (4.30-6.10); SODIUM LEVEL 134 MMOL/L (136-145); TOTAL PROTEIN 7.3 G/DL (5.7-8.2); TRIGLYCERIDES LEVEL 214 MG/DL (<150); WHITE BLOOD COUNT 7.9 10^3/uL (4.0-10.0)
[2024-10-23 18:58] LABS: HEMOGLOBIN A1c 11.3 % (4.0-6.0)
== END ==
LOC: M SFHCCAPE 07:10
PROVIDERS: ATTEND Physician Assistant Medical
DX: J45.909 Unspecified asthma, uncomplicated (principal); E11.65 Type 2 diabetes mellitus with hyperglycemia; E78.2 Mixed hyperlipidemia; Z12.5 Encounter for screening for malignant neoplasm of prostate
CPT/HCPCS: 80053; 80061; 83036; 85025; G0103

== ENCOUNTER → 2025-01-18 | Outpatient (REF) | payer BC ==
[~2025-01-18] MED LIST changes: +AMOX875T2 PO; +METF-838 PO; +TIRZ7.5P INJ
[2025-01-18 17:59] LABS: CALCIUM LEVEL 9.0 MG/DL (8.3-10.6); CARBON DIOXIDE LEVEL 24 MMOL/L (20-31); CHLORIDE LEVEL 100 MMOL/L (98-107); CREATININE FOR GFR 0.62 MG/DL (0.70-1.30); GLOMERULAR FILTRATION RATE > 90.0 (>49); POTASSIUM SERUM 4.8 MMOL/L (3.5-5.1); SODIUM LEVEL 135 MMOL/L (136-145)
[2025-01-18 18:19] LABS: ESTIMATED AVERAGE GLUCOSE 283.0 MG/DL (60-110)
== END ==
LOC: M SFHCCAPE 07:24
PROVIDERS: ATTEND Physician Assistant Medical
DX: E11.65 Type 2 diabetes mellitus with hyperglycemia (principal)

== ENCOUNTER → 2025-04-23 | Outpatient (REF) | payer BC ==
[~2025-04-23] MED LIST changes: -EZET10TA21 PO; +EZET10TA57 PO
[2025-04-23 18:40] LABS: BASO # 0.1 10^3/uL (0.0-0.2); BASO % 0.6 % (0.0-1.0); EOS # 0.7 10^3/uL (0.0-0.5); EOS % 8.3 % (0.0-3.0); LYMPH # 2.0 10^3/uL (1.5-5.0); LYMPH % 23.6 % (24.0-44.0); MONO # 0.6 10^3/uL (0.0-0.8); MONO % 7.5 % (2.0-8.0); NEUTROPHILS # 5.0 10^3/uL (1.5-8.5); NEUTROPHILS % 59.5 % (36.0-66.0); PLATELET COUNT, AUTOMATED 292 10^3/uL (150-450)
[2025-04-23 18:43] LABS: ALT/SGPT 30 U/L (7.0-40); AST/SGOT 22 U/L (<34); CALCIUM LEVEL 9.6 MG/DL (8.3-10.6); CARBON DIOXIDE LEVEL 24 MMOL/L (20-31); CHLORIDE LEVEL 103 MMOL/L (98-107); CREATININE FOR GFR 0.60 MG/DL (0.70-1.30); GLOMERULAR FILTRATION RATE > 90.0 (>49); POTASSIUM SERUM 4.7 MMOL/L (3.5-5.1); SODIUM LEVEL 135 MMOL/L (136-145)
[2025-04-23 18:56] LABS: ESTIMATED AVERAGE GLUCOSE 186.0 MG/DL (60-110)
== END ==
LOC: M SFHCCAPE 07:18
PROVIDERS: ATTEND Physician Assistant Medical
DX: E11.65 Type 2 diabetes mellitus with hyperglycemia (principal); J39.0 Retropharyngeal and parapharyngeal abscess